=== PATIENT | female | born 1980 | race Caucasian/White ===

== ENCOUNTER 2017-02-05 21:25 | Emergency (ER) | payer BC ==
[~2017-02-05] VITALS: Ht 157.5 cm; Wt 48.1 kg
[~2017-02-05 21:25] MED LIST: LEVO100T48 PO; PRENTAB26 PO
[2017-02-05 21:31] VITALS: Ht 157.5 cm; Wt 48.1 kg
[2017-02-05] MEDS ORDERED: SYN100 PO (21:43)
[2017-02-05] MEDS ORDERED: SODIUM CHLORIDE 0.9% 1000ML 1,000 ML IV STA ×2 (21:44)
[2017-02-05] MEDS ORDERED: RANITIDINE HCL 50 MG/100 ML D5W IV STA (21:44)
[2017-02-05] MEDS ORDERED: ONDANSETRON INJ 2 MG/ML 2 ML VIAL IV STA ×2 (21:44→23:13)
[2017-02-05] MEDS ORDERED: MoRPHine SULFATE 4 MG/ML 1 ML CARP\\VIAL IV STA (21:46)
[2017-02-05 21:55] VITALS: O2SAT 98
[2017-02-05 22:04] LABS: BASO % 0.4 %; BASO ABS # 0.02 K/uL (0-0.2); COMPLETE YES; EOS % 0.2 %; HEMATOCRIT 37.7 % (37-47); IG% 0.2 %; LYMPH % 12.3 %; MEAN CELL VOLUME 92.9 fL (80-100); MEAN CORPUSCULAR HGB CONC 33.4 g/dl (32-36); MEAN PLATELET VOLUME 9.8 fL (7.4-10.4); MONO % 2.5 %; NEUT % 84.4 %; PLATELET COUNT 274 K/uL (130-400); RED BLOOD COUNT 4.06 M/uL (4.2-5.4)
[2017-02-05 22:22] LABS: BUN/CREATININE RATIO 15.9 (10-20); CREATININE 0.79 mg/dl (0.60-1.20); POTASSIUM 3.6 mmol/L (3.5-5.1)
[2017-02-05 22:25] LABS: PREG INTERNAL NEGATIVE QC NEG CLEAR BACKGROUND; PREG INTERNAL POSITIVE QC POS CONTROL LINE
[2017-02-05 22:27] LABS: CALCIUM 8.8 mg/dl (8.5-10.1)
[2017-02-06] MEDS ORDERED: OPTIRAY 320 IV PRN (00:15)
[2017-02-06 01:08] LABS: URINE APPEARANCE CLEAR (CLEAR); URINE BILIRUBIN NEG (NEG); URINE COLOR YELLOW; URINE NITRITE NEG (NEG); URINE PH 7.5 (4.5-7.5); URINE SPECIFIC GRAVITY 1.012 (1.000-1.030); UROBILINOGEN NEG (NEG); ZZUR CULT IF INDIC CLEAN CATCH NO
[2017-02-06 01:10] LABS: MANUAL MICROSCOPIC REQUIRED? NO; REVIEW REQ? NO
[2017-02-06] MEDS ORDERED: OXYCODONE IR HOME PACK PO ONE (01:30)
[2017-02-06] MEDS ORDERED: ONDANSETRON HOME PACK 4MG OD TAB PO ONE (01:30)
[2017-02-06 01:44] VITALS: BP 93/62; PULSE 70; O2SAT 97
--- NOTE | 2017-02-06 04:32 | EMERGENCY ROOM VISIT NOTE ---
History First contact with patient: 21:40 Chief Complaint: VOMITING Stated Complaint: VOMITING,BACK AND ABD PAIN Nursing Triage Summary: pt c/o abd pain with n/v for about past 5 hrs pt hx of hernia, pain located at R lower abdomen at site of hernia. History of Present Illness The patient is a 36 year old female who presents to the Emergency Room with complaints of nausea, vomiting and right lower abdominal pain for the past several hours. Patient has an inguinal hernia here. Patient was a few episodes of vomiting. She is best to have hernia surgery but has not looked into this yet. She describes pain as aching, ranging in severity 7 out of 10. No blood or black in the vomit. Nothing makes it better or worse. Patient denies chest pain, dyspnea, fever, chills, cough, congestion, back pain, urinary symptoms. No vaginal itching or discharge. She is in a monogamous relationship. She had an episode of loose stool. No diarrhea. Review of Systems See HPI for pertinent positives & negatives. A total of 10 systems reviewed and were otherwise negative. Past Medical/Surgical History Right inguinal hernia, hypothyroidism Social History Smoking Status: Never Smoker Smokeless Tobacco Use: No Drug Use: none Marital Status: Housing Status: lives with family Current/Historical Medications Scheduled Levothyroxine Sodium (Synthroid), 100 MCG PO QAM Allergies Coded Allergies: Penicillins (Unverified Allergy, Severe, ANAPHYLAXIS, 02/05/17) SWELLING Quinolones (Verified Allergy, Mild, ITCHING, SWELLING, 02/05/17) ITCHING,SWELLING Formaldehyde (Verified Allergy, Unknown, HYPERVENTILATED IN HOME EC CLASS , 02/05/17) Physical Exam Vital Signs Date Time Temp Pulse Resp B/P Pulse Ox O2 Delivery O2 Flow Rate FiO2 02/06/17 01:44 70 18 93/62 97 02/06/17 01:20 58 14 96/57 97 Room Air 02/06/17 00:22 69 16 110/65 96 Room Air 02/05/17 23:07 72 16 105/70 98 Room Air 02/05/17 22:17 71 02/05/17 21:55 98 Room Air 02/05/17 21:31 105 18 126/82 96 Room Air Pain Rating (0-10): 3.0 Physical Exam VITALS: Vitals are noted on the nurse's note and reviewed by myself. Vital signs mildly tachycardic. GENERAL: Pleasant female, in no acute distress, nondiaphoretic, well-developed well-nourished. SKIN: The skin was without rashes, erythema, edema, or bruising. There is no tenting of the skin. Capillary reflex less than 2 seconds. HEAD: Normocephalic atraumatic. EARS: External auditory canals clear, tympanic membranes pearly garcia without erythema or effusion bilaterally. EYES: Pupils equal round and reactive to light and accommodation. Conjunctivae without injection, sclerae without icterus. Extraocular movements intact. NOSE: Patent, turbinates without inflammation or discharge. MOUTH: Mucous membranes mildly dry. Pharynx without erythema or exudate. Uvula midline. Airway patent. Tongue does not deviate. NECK: Supple without nuchal rigidity. No lymphadenopathy. No thyromegaly. Cervical spine is nontender. No JVD. HEART: Regular rate and rhythm without murmurs gallops or rubs. LUNGS: Clear to auscultation bilaterally without wheezes, rales or rhonchi. No dullness to percussion. No retractions or accessory muscle use. ABDOMEN: Positive bowel sounds x 4. Normal tympanic percussion. Soft, tender to palpation right lower quadrant with inguinal hernia present, no CVA tenderness, without masses or organomegaly. Vera sign negative. No guarding or rebound tenderness. MUSCULOSKELETAL: No muscle atrophy, erythema, or edema noted. NEURO: Patient was alert and oriented to person place and time. Normal sensation to light and sharp touch. No focal neurological deficits. Medical Decision & Procedures Laboratory Results 02/05/17 21:50 Red Blood Count 4.06, Mean Corpuscular Volume 92.9, Mean Corpuscular Hemoglobin 31.0, Mean Corpuscular Hemoglobin Concent 33.4, Mean Platelet Volume 9.8, Neutrophils (%) (Auto) 84.4, Lymphocytes (%) (Auto) 12.3, Monocytes (%) (Auto) 2.5, Eosinophils (%) (Auto) 0.2, Basophils (%) (Auto) 0.4, Neutrophils # (Auto) 4.82, Lymphocytes # (Auto) 0.70, Monocytes # (Auto) 0.14, Eosinophils # (Auto) 0.01, Basophils # (Auto) 0.02 02/05/17 21:50 Test 02/05/17 21:50 02/05/17 21:56 02/06/17 00:50 White Blood Count 5.70 K/uL (4.8-10.8) Red Blood Count 4.06 M/uL (4.2-5.4) Hemoglobin 12.6 g/dL (12.0-16.0) Hematocrit 37.7 % (37-47) Mean Corpuscular Volume 92.9 fL (80-100) Mean Corpuscular Hemoglobin 31.0 pg (25-34) Mean Corpuscular Hemoglobin Concent 33.4 g/dl (32-36) Platelet Count 274 K/uL (130-400) Mean Platelet Volume 9.8 fL (7.4-10.4) Neutrophils (%) (Auto) 84.4 % Lymphocytes (%) (Auto) 12.3 % Monocytes (%) (Auto) 2.5 % Eosinophils (%) (Auto) 0.2 % Basophils (%) (Auto) 0.4 % Neutrophils # (Auto) 4.82 K/uL (1.4-6.5) Lymphocytes # (Auto) 0.70 K/uL (1.2-3.4) Monocytes # (Auto) 0.14 K/uL (0.11-0.59) Eosinophils # (Auto) 0.01 K/uL (0-0.5) Basophils # (Auto) 0.02 K/uL (0-0.2) RDW Standard Deviation 41.0 fL (36.4-46.3) RDW Coefficient of Variation 12.0 % (11.5-14.5) Immature Granulocyte % (Auto) 0.2 % Immature Granulocyte # (Auto) 0.01 K/uL (0.00-0.02) Anion Gap 8.0 mmol/L (3-11) Est Creatinine Clear Calc Drug Dose 74.0 ml/min Estimated GFR () 110.8 Estimated GFR (Non- 95.6 BUN/Creatinine Ratio 15.9 (10-20) Calcium Level 8.8 mg/dl (8.5-10.1) Total Bilirubin 0.6 mg/dl (0.2-1) Direct Bilirubin 0.1 mg/dl (0-0.2) Aspartate Amino Transf (AST/SGOT) 16 U/L (15-37) Alanine Aminotransferase (ALT/SGPT) 17 U/L (12-78) Alkaline Phosphatase 34 U/L (45-117) Total Protein 7.4 gm/dl (6.4-8.2) Albumin 4.1 gm/dl (3.4-5.0) Lipase 120 U/L (73-393) Human Chorionic Gonadotropin, Qual NEG (NEG) Bedside Lactic Acid Venous 1.13 mmol/L (0.90-1.70) Urine Color YELLOW Urine Appearance CLEAR (CLEAR) Urine pH 7.5 (4.5-7.5) Urine Specific [place] 1.012 (1.000-1.030) Urine Protein NEG (NEG) Urine Glucose (UA) NEG (NEG) Urine Ketones TRACE (NEG) Urine Occult Blood NEG (NEG) Urine Nitrite NEG (NEG) Urine Bilirubin NEG (NEG) Urine Urobilinogen NEG (NEG) Urine Leukocyte Esterase NEG (NEG) Medications Administered Medications (Trade) Dose Ordered Sig/[place] Route Start Time Stop Time Status Last Admin Dose Admin Ranitidine HCl 50 mg 50 mg NOW STAT IV 02/05/17 21:44 02/05/17 21:45 DC 02/05/17 21:54 50 MG Sodium Chloride 1,000 ml @ 999 mls/hr Q1H1M STAT IV 02/05/17 21:44 02/05/17 22:44 DC 02/05/17 22:01 999 MLS/HR Sodium Chloride (Nss 1000ml) 1,000 ml @ 125 mls/hr Q8H STAT IV 02/05/17 21:44 02/06/17 02:16 DC 02/05/17 22:01 125 MLS/HR Ondansetron HCl (Zofran Inj) 4 mg NOW STAT IV 02/05/17 21:44 02/05/17 21:45 DC 02/05/17 21:54 4 MG Morphine Sulfate (MoRPHine SULFATE INJ) 4 mg NOW STAT IV 02/05/17 21:46 02/05/17 21:49 DC 02/05/17 21:54 4 MG Ondansetron HCl (Zofran Inj) 4 mg NOW STAT IV 02/05/17 23:13 02/05/17 23:15 DC 02/05/17 23:13 4 MG Ondansetron HCl (ZOFRAN ODT 4MG Home Pack) 1 homepack UD ONCE PO 02/06/17 01:30 02/06/17 01:31 DC 02/06/17 01:37 1 HOMEPACK Oxycodone HCl (Roxicodone Immediate Rel 5MG Home Pack) 1 homepack UD ONCE PO 02/06/17 01:30 02/06/17 01:31 DC 02/06/17 01:37 1 HOMEPACK ED Course Prior records/ancillary studies reviewed. Triage Nursing notes reviewed. Additional history obtained from the family. The patient's history was concerning for nausea, vomiting, and abdominal pain. Differential diagnosis: Etiologies such as gastroenteritis, hernia incarceration, strangulated hernia, food borne illness, infections, appendicitis, diverticulitis, inflammatory bowel disease, obstruction, GI bleed, biliary pathology, as well as others were entertained. Physical examination findings: As above. Abdominal examination revealed tenderness to the right lower quadrant. Vital signs reviewed and revealed mild tachycardia ER treatment provided: IV hydration 1 L NSS. Zofran, morphine On reassessment the patient felt better. Patient was tolerating p.o. intake. Diagnostics interpretation by me: The labs revealed no worrisome leukocytosis or electrolyte abnormality. Negative hCG. Negative urine Imaging studies: CT ABDOMEN & PELVIS: No bowel obstruction. No appendicitis or other inflammatory changes of bowel. Pancreas and gallbladder are grossly unremarkable. No renal calculi. No hydronephrosis. No free air or free fluid. Dilated gonadal and parametrial vessels can be seen with pelvic congestion syndrome in the right clinical setting. This appears to be consistent with vomiting and right lower abdominal discomfort most likely related to her hernia. This was not incarcerated. No appendicitis. She is advised follow-up surgery for her hernia and family care doctor in a few days for reevaluation. Patient was tolerating fluids. She ambulated without difficulties. She felt much better and requested to leave. I felt this is reasonable. She is advised to return to the ER immediately for abdominal pain, fevers, vomiting, worsening signs or symptoms or as needed.. By the evaluation outlined above emergent etiologies such as appendicitis, diverticulitis, obstruction, cardiac sources, mesenteric ischemia, aortic pathology, inflammatory bowel disease, renal colic, PUD, biliary pathology, UTI , as well as others were deemed relatively unlikely. The pt informed about the findings as listed above. All questions were answered and pleased with the treatment. Return instructions were outlined and the patient was discharged in stable condition. Outpatient prescription management: Zofran Referral: The patient was referred to their primary care physician for follow-up in 2 to 3 days for a recheck of the current condition. Case reviewed with my attending Medical Decision As above Impression Primary Impression: Right lower quadrant abdominal pain Additional Impression: Vomiting Departure Information Dispostion Home / Self-Care Condition GOOD Forms HOME CARE DOCUMENTATION FORM, Work Instructions, Return To Work: 1 day IMPORTANT VISIT INFORMATION Patient Instructions Vomit Diarrhea Self Care, Abdominal Pain - [facility], [facility] Additional Instructions DO NOT drive, drink alcohol, operate machinery, or perform dangerous activities today. You were given medications in the ER that can affect your ability to safely function or operate a vehicle. Zofran(odansetron) tablets 4mg: Take one and allow it to dissolve in your mouth every four to six hours as needed for nausea or vomiting. Ibuprofen(Motrin, Advil) may be used for fever or pain. Use 600mg every six hours as needed. Take with food. Avoid using more than 2400mg in a 24 hour period. Do not use 2400mg per day for more than three consecutive days without physician direction. Prolonged inappropriate use can lead to stomach upset or ulcers. (AND/OR) Acetaminophen(Tylenol) may be used for fever or pain. Use 1000mg every six hours as needed. Avoid using more than 3000mg in a 24 hour period. Rest and drink plenty of fluids as tolerated. Slow sips of water or sports drinks are recommended instead of large amounts all at once. Continue current medications. Once your stomach is settled start with a clear liquid diet (jello, soup broth, etc.) and then advance as tolerated. You should avoid full, heavy meals for about 24 hrs from the time your symptoms resolved. Return to the ER for persistent vomiting, fevers, abdominal pain, chest pains, difficulty breathing, black or bloody stools, worsening of your condition, or as needed. Follow up with your primary physician and surgeon for further evaluation and treatment for your hernia in 2-3 days for a recheck of your current condition. Work Instructions Return To Work: 1 day Problem Qualifiers
--- NOTE | 2017-02-06 09:00 | DIAGNOSTIC IMAGING REPORT ---
CT OF THE ABDOMEN AND PELVIS WITH CONTRAST CLINICAL HISTORY: Right lower quadrant pain. Hernia. COMPARISON STUDY: None. TECHNIQUE: Following IV administration of 118 mL of [id number], axial images of the abdomen and pelvis were obtained from the lung bases to the proximal femurs. Images were reviewed in the axial, sagittal, and coronal planes. IV contrast was administered without complication. Oral contrast was administered. CT DOSE: 253.91 mGy.cm FINDINGS: The liver, spleen, adrenal glands, kidneys and pancreas are unremarkable. The caliber and wall thickness of small and large bowel are normal. The appendix is normal. There is a dominant follicle within the left ovary. The ovaries are not enlarged. There is trace fluid within the pelvis which is likely physiologic. A small amount of fluid within a right inguinal hernia is noted. No bowel loops are present within the hernia sac. There is no lymphadenopathy. Skeletal structures are unremarkable. IMPRESSION: 1. Normal appendix. 2. No bowel obstruction. 3. Small amount of fluid within a right inguinal hernia sac. Electronically signed by: Travis Godoy M.D. 02/06/2017 8:59 AM Dictated Date/Time: 02/06/2017 8:54 AM
== END 2017-02-06 01:44 | disposition home or self-care (01) ==
LOC: C.EDB 21:27 → C.EDC 02-06 01:44
DX: R10.31 Right lower quadrant pain (principal); R11.2 Nausea with vomiting, unspecified; Z79.899 Other long term (current) drug therapy